=== PATIENT | female | born 1980 | race African-American/Black ===

== ENCOUNTER → 2016-11-30 | Outpatient (CLI) | payer OTHER ==
--- NOTE | 2016-11-30 13:36 | RAD ---
2 views of the Chest 11/30/2016 2:00 AM Indication: ASTHMA, DEPRESSION, DISABILITY DETERMINATION Comparison: None Findings: There is no pneumothorax or pleural effusion. There is a small calcified granuloma in the right middle lobe. There is what appears to be calcified adenopathy in the right peritracheal region in the subcarinal region. An acute infiltrate is not identified. Heart size is normal. No acute osseous changes are seen. Impression: 1.No evidence of acute cardiopulmonary process. 2 small calcified granuloma in the right middle lobe, as well as calcified right paratracheal and subcarinal adenopathy. Findings most likely the sequela of prior granulomatous disease
== END | disposition home or self-care (01) ==
LOC: RAD 12:56
PROVIDERS: ATTEND Neuromusculoskeletal Medicine, Sports Medicine
DX: J45.909 Unspecified asthma, uncomplicated (principal); F32.9 Major depressive disorder, single episode, unspecified; J84.10 Pulmonary fibrosis, unspecified; R59.9 Enlarged lymph nodes, unspecified
CPT/HCPCS: 71020

== ENCOUNTER 2016-12-13 19:36 | Emergency (ER) | payer OTHER ==
[~2016-12-13] VITALS: Ht 165.1 cm; Wt 108.9 kg
--- NOTE | 2016-12-13 20:10 | PHYS DOC ---
Adult General Chief Complaint Chief Complaint: SYNCOPE HPI HPI Patient is a 36 year old and [place] female who presents with sick all episode. She states she was at work and all of a sudden she ended up on the floor. She states this is not the first time this is happen fact the last 6 weeks is happen to other times. She denies any prodromal symptoms prior to her passing out she denies any urinary incontinence. She does complain of a headache in the frontal aspect of her head but denies she hit her head. She denies any nausea chest pain shortness of breath. She does have a history of fibromyalgia and diabetes. She is complaining about feeling foggy. Review of Systems Review of Systems Constitutional: Denies fever or chills [] Eyes: Denies change in visual acuity, redness, or eye pain [] HENT: Denies nasal congestion or sore throat [] Respiratory: Denies cough or shortness of breath [] Cardiovascular: No additional information not addressed in HPI [] GI: Denies abdominal pain, nausea, vomiting, bloody stools or diarrhea [] : Denies dysuria or hematuria [] Musculoskeletal: Denies back pain or joint pain [] Integument: Denies rash or skin lesions [] Neurologic: Positive for headache, Denies focal weakness or sensory changes [] Endocrine: Denies polyuria or polydipsia [] Current Medications Current Medications Current Medications Medications (Trade) Dose Ordered Sig/Natalie Start Time Stop Time Status Last Admin Dose Admin Magnesium Sulfate/ Dextrose 100 ml @ 100 mls/hr 1X ONCE 12/13/16 21:30 12/13/16 22:29 DC 12/13/16 21:24 100 MLS/HR Potassium Chloride (Klor-Con) 40 meq 1X ONCE 12/13/16 21:30 12/13/16 21:31 DC 12/13/16 21:26 40 MEQ Sodium Chloride 1,000 ml @ 1,000 mls/hr 1X ONCE 12/13/16 23:00 12/13/16 23:59 DC 12/13/16 23:00 1,000 MLS/HR Allergies Allergies Allergies Coded Allergies Type Severity Reaction Last Updated Verified No Known Drug Allergies 12/13/16 No Physical Exam Physical Exam Constitutional: Well developed, well nourished, no acute distress, non-toxic appearance. [] HENT: Normocephalic, atraumatic, bilateral external ears normal, oropharynx moist, no oral exudates, nose normal. [] Eyes: PERRLA, EOMI, conjunctiva normal, no discharge. [] Neck: Normal range of motion, no tenderness, supple, no stridor. [] Cardiovascular:Heart rate regular rhythm, no murmur [] Lungs & Thorax: Bilateral breath sounds clear to auscultation [] Abdomen: Bowel sounds normal, soft, no tenderness, no masses, no pulsatile masses. [] Skin: Warm, dry, no erythema, no rash. [] Back: No tenderness, no CVA tenderness. [] Extremities: No tenderness, no cyanosis, no clubbing, ROM intact, no edema. [] Neurologic: Alert and oriented X 3, normal motor function, normal sensory function, no focal deficits noted. [] Psychologic: Affect normal, judgement normal, mood normal. [] Current Patient Data Vital Signs Vital Signs Date Time Temp Pulse Resp B/P (MAP) Pulse Ox O2 Delivery O2 Flow Rate FiO2 12/13/16 23:35 86 20 100/50 (67) 97 Room Air 12/13/16 20:10 98.3 98.3 Lab Values Laboratory Tests Test 12/13/16 19:49 12/13/16 20:17 12/13/16 20:40 12/13/16 23:00 POC Urine HCG, Qualitative Hcg negative (Negative) White Blood Count 26.2 x10^3/uL (4.0-11.0) H Red Blood Count 4.49 x10^6/uL (3.50-5.40) Hemoglobin 11.6 g/dL (12.0-15.5) L Hematocrit 36.0 % (36.0-47.0) Mean Corpuscular Volume 80 fL (79-100) Mean Corpuscular Hemoglobin 26 pg (25-35) Mean Corpuscular Hemoglobin Concent 32 g/dL (31-37) Red Cell Distribution Width 15.1 % (11.5-14.5) H Platelet Count 357 x10^3/uL (140-400) Neutrophils (%) (Auto) 83 % (31-73) H Lymphocytes (%) (Auto) 11 % (24-48) L Monocytes (%) (Auto) 5 % (0-9) Eosinophils (%) (Auto) 1 % (0-3) Basophils (%) (Auto) 1 % (0-3) Neutrophils # (Auto) 21.9 x10^3uL (1.8-7.7) H Lymphocytes # (Auto) 2.8 x10^3/uL (1.0-4.8) Monocytes # (Auto) 1.3 x10^3/uL (0.0-1.1) H Eosinophils # (Auto) 0.1 x10^3/uL (0.0-0.7) Basophils # (Auto) 0.2 x10^3/uL (0.0-0.2) Segmented Neutrophils % 84 % (35-66) H Band Neutrophils % 4 % (0-9) Lymphocytes % 10 % (24-48) L Monocytes % 2 % (0-10) Platelet Estimate Adequate (ADEQUATE) Sodium Level 142 mmol/L (136-145) Potassium Level 2.9 mmol/L (3.5-5.1) *L Chloride Level 105 mmol/L (98-107) Carbon Dioxide Level 24 mmol/L (21-32) Anion Gap 13 (6-14) Blood Urea Nitrogen 6 mg/dL (7-20) L Creatinine 0.7 mg/dL (0.6-1.0) Estimated GFR (Cockcroft-Gault) 113.9 Glucose Level 135 mg/dL (70-99) H Calcium Level 9.3 mg/dL (8.5-10.1) Magnesium Level 1.7 mg/dL (1.8-2.4) L Total Bilirubin 0.4 mg/dL (0.2-1.0) Direct Bilirubin 0.1 mg/dL (0.0-0.2) Aspartate Amino Transferase (AST) 24 U/L (15-37) Alanine Aminotransferase (ALT) 17 U/L (14-59) Alkaline Phosphatase 73 U/L (46-116) Creatine Kinase 123 U/L (26-192) 118 U/L (26-192) Creatine Kinase MB (Mass) < 0.5 ng/mL (0.0-3.6) < 0.5 ng/mL (0.0-3.6) Creatine Kinase MB Relative Index % (0-4) % (0-4) Troponin I Quantitative < 0.017 ng/mL (0.000-0.055) < 0.017 ng/mL (0.000-0.055) TR-Xbb-Y-Type Natriuretic Peptide 125 pg/mL (0-124) H Total Protein 7.6 g/dL (6.4-8.2) Albumin 3.3 g/dL (3.4-5.0) L Thyroid Stimulating Hormone (TSH) 0.522 uIU/mL (0.358-3.74) Urine Color Yellow Urine Clarity Clear Urine pH 6.5 Urine Specific [place] <=1.005 Urine Protein Negative mg/dL (NEG-TRACE) Urine Glucose (UA) Negative mg/dL (NEG) Urine Ketones (Stick) Negative mg/dL (NEG) Urine Blood Negative (NEG) Urine Nitrite Negative (NEG) Urine Bilirubin Negative (NEG) Urine Urobilinogen Dipstick 0.2 mg/dL (0.2 mg/dL) Urine Leukocyte Esterase Negative (NEG) Urine RBC 0 /HPF (0-2) Urine WBC Occ /HPF (0-4) Urine Squamous Epithelial Cells Mod /LPF Urine Amorphous Sediment Present /HPF Urine Bacteria 0 /HPF (0-FEW) Urine Opiates Screen Neg (NEG) Urine Methadone Screen Neg (NEG) Urine Barbiturates Neg (NEG) Urine Phencyclidine Screen Neg (NEG) Urine Amphetamine/Methamphetamine Neg (NEG) Urine Benzodiazepines Screen Neg (NEG) Urine Cocaine Screen Neg (NEG) Urine Cannabinoids Screen Neg (NEG) Urine Ethyl Alcohol Neg (NEG) Laboratory Tests 12/13/16 20:17 Laboratory Tests 12/13/16 20:17 EKG EKG EKG shows sinus rhythm rate [address] elevations or T-wave inversions, and normal axis, QTC 4 and 28 ms, as interpreted by me. Radiology/Procedures Radiology/Procedures [facility] [address] [place] [address] IMAGING REPORT Signed PATIENT: ELIAS OWUSU ACCOUNT: [id number] : 1980 LOCATION: ER AGE: 36 SEX: F EXAM STATUS: REG ER ORD. PHYSICIAN: ROSIE MESSINA MD REASON: syncope PROCEDURE: CT HEAD WO CONTRAST CT head without contrast: Reason for examination: Syncope today. Axial images were obtained through the brain. No contrast was administered. Exposure: One or more of the following individualized dose reduction techniques were utilized for this examination: 1. Automated exposure control 2. Adjustment of the mA and/or kV according to patient size 3. Use of iterative reconstruction technique. Ventricular systems are symmetric and not abnormally dilated. No midline shift is seen. There is no evidence of intracranial hemorrhage, infarct, mass or edema. There is calcification along the cerebral falx. No abnormalities are seen at the orbits. The paranasal sinuses are well-developed and well aerated with no mucosal thickening. Mastoid air cells are clear. No acute abnormality seen in the skull. IMPRESSION: No acute intracranial abnormality evident. Electronically signed by: Miley Pizano MD (12/13/2016 10:10 PM) [id number] DICTATED and SIGNED BY: MILEY PIZANO MD DATE: 12/13/162207 CC: ROSIE MESSINA MD; WARREN FLOOD MD ~ One view chest x-ray did not show any focal consolidations, bony abnormality's, or pneumothorax, as interpreted by me. Impressions: sycnope Hypomagnesemia Hypokalemia Orthostatic Course & Med Decision Making Course & Med Decision Making Pertinent Labs and Imaging studies reviewed. (See chart for details) Patient was orthostatic and hypokalemic upon presentation. She received a liter of fluids. Her potassium and magnesium was replaced. CT head and chest x-ray in addition to EKG nonacute. I do not see any reason why she needs to be admitted. We will have her follow-up with primary care who can then refer her to cardiology. Patient's agreeable plan being discharged in stable condition at this time with return precautions. Dragon Disclaimer Dragon Disclaimer This electronic medical record was generated, in whole or in part, using a voice recognition dictation system. Departure Departure Impression: Primary Impression: Syncope Disposition: 01 HOME, SELF-CARE Condition: STABLE Referrals: WARREN FLOOD MD (PCP) Patient Instructions: Syncope, [id number] Additional Instructions: Your potassium was slightly low in addition to magnesium. These were both replaced. You are also slightly dehydrated and received IV fluids. You will need to follow-up with Dr. Flood. Please call his office and schedule follow- up appointment. They might refer you to a real estate account executive for your repeated episodes of passing out. If you develop chest pain, shortness of breath, or other concerns please return back to emergency department for evaluation and treatment. Problem Qualifiers Primary Impression: Syncope Syncope type: unspecified Qualified Codes: R55 - Syncope and collapse ROSIE MESSINA MD Dec 13, 2016 20:10
[2016-12-13 20:29] LABS: BASO # 0.2 x10^3/uL (0.0-0.2); BASO % 1 % (0-3); EOS % 1 % (0-3); HEMOGLOBIN 11.6 g/dL (12.0-15.5); LYMPH # 2.8 x10^3/uL (1.0-4.8); LYMPH % 11 % (24-48); MEAN CORPUSCULAR HEMOGLOBIN 26 pg (25-35); MEAN CORPUSCULAR HGB CONC 32 g/dL (31-37); MEAN CORPUSCULAR VOLUME 80 fL (79-100); MONO % 5 % (0-9); NEUT % 83 % (31-73); PLATELET COUNT 357 x10^3/uL (140-400); RED BLOOD COUNT 4.49 x10^6/uL (3.50-5.40); RED CELL DISTRIBUTION WIDTH 15.1 % (11.5-14.5); WHITE BLOOD COUNT 26.2 x10^3/uL (4.0-11.0)
[2016-12-13 20:50] LABS: BILIRUBIN,URINE NEGATIVE (NEG); GLUCOSE,URINE NEGATIVE (NEG); NITRITE,URINE NEGATIVE (NEG); PH,URINE 6.5; PROTEIN,URINE NEGATIVE (NEG-TRACE); UROBILINOGEN,URINE 0.2 mg/dL (0.2 mg/dL)
[2016-12-13 20:50] LABS: ALBUMIN 3.3 g/dL (3.4-5.0); CALCIUM 9.3 mg/dL (8.5-10.1); CREATININE 0.7 mg/dL (0.6-1.0); DIRECT BILIRUBIN 0.1 mg/dL (0.0-0.2); GFR 113.9; MAGNESIUM 1.7 mg/dL (1.8-2.4); POTASSIUM 2.9 mmol/L (3.5-5.1); TOTAL BILIRUBIN 0.4 mg/dL (0.2-1.0); TOTAL PROTEIN 7.6 g/dL (6.4-8.2)
[2016-12-13 20:55] LABS: BARBITURATES NEG (NEG); BENZODIAZEPINES NEG (NEG); CANNABINOIDS NEG (NEG); COCAINE NEG (NEG); METHADONE NEG (NEG); OPIATES NEG (NEG); PHENCYCLIDINE NEG (NEG)
[2016-12-13 20:56] LABS: CKMB MASS < 0.5 ng/mL (0.0-3.6); CREATINE KINASE 123 U/L (26-192)
[2016-12-13 21:01] LABS: BACTERIA,URINE 0 /HPF (0-FEW); RBC,URINE 0 /HPF (0-2); SQUAMOUS EPITHELIAL CELL,UR MOD /LPF; WBC,URINE OCC /HPF (0-4)
[2016-12-13 21:22] LABS: PLT ESTIMATE ADEQUATE (ADEQUATE)
[2016-12-13] MEDS ORDERED: MAGNESIUM SULFATE 1GM 100 ML IV ONE (21:30)
[2016-12-13] MEDS ORDERED: POTASSIUM CHLORIDE 20 MEQ TABLET.ER. PO ONE (21:30)
--- NOTE | 2016-12-13 22:13 | RAD ---
CT head without contrast: Reason for examination: Syncope today. Axial images were obtained through the brain. No contrast was administered. Exposure: One or more of the following individualized dose reduction techniques were utilized for this examination: 1. Automated exposure control 2. Adjustment of the mA and/or kV according to patient size 3. Use of iterative reconstruction technique. Ventricular systems are symmetric and not abnormally dilated. No midline shift is seen. There is no evidence of intracranial hemorrhage, infarct, mass or edema. There is calcification along the cerebral falx. No abnormalities are seen at the orbits. The paranasal sinuses are well-developed and well aerated with no mucosal thickening. Mastoid air cells are clear. No acute abnormality seen in the skull. IMPRESSION: No acute intracranial abnormality evident. Electronically signed by: Miley Bowman MD (12/13/2016 10:10 PM) [facility]
[2016-12-13] MEDS ORDERED: IV NORMAL SALINE 1000ML BAG 1,000 ML IV ONE (23:00)
[2016-12-13 23:35] VITALS: BP 100/50
[2016-12-13 23:36] LABS: CKMB MASS < 0.5 ng/mL (0.0-3.6); CREATINE KINASE 118 U/L (26-192)
--- NOTE | 2016-12-14 07:49 | EKG ---
[facility] [address] [place] [address] Test Date: 2016-12-13 Test Time: 20:09:42 Pat Name: ELIAS OWUSU Department: Room: Gender: F Senior Account Manager: : 1980 Requested By: ROSIE MESSINA Order Number: [id number] Reading MD: Alana Penn Measurements Intervals Pitcher Rate: 93 P: 61 [place]: 164 QRS: 23 QRSD: 90 T: 35 QT: 342 QTc: 428 Interpretive Statements SINUS RHYTHM LEFT ATRIAL ABNORMALITY ABNORMAL ECG Electronically Signed On 12-18-2016 9:02:30 CDT by Alana Penn
--- NOTE | 2016-12-14 08:16 | RAD ---
Indication syncopal episode. A single view of the chest was obtained. Comparison is made to an examination 11/30/2016. There is suggested volume loss in the left lower lobe, new relative to the previous exam. This may reflect atelectasis although pneumonia is not excluded. The right lung is clear. A granuloma is noted in the right lung similar to the previous exam. IMPRESSION: Suggested volume loss in the left mid and lower lung field new relative to the previous exam. Findings may reflect atelectasis or pneumonia
== END 2016-12-14 00:28 | disposition home or self-care (01) ==
LOC: ER 19:36
DX: R55 Syncope and collapse (principal); E11.9 Type 2 diabetes mellitus without complications; E87.6 Hypokalemia; E83.42 Hypomagnesemia; M79.7 Fibromyalgia
CPT/HCPCS: 36415; 70450; 71010; 80048; 80076; 80307; 81001; 81025; 82553; 83735; 83880; 84443; 84484; 85007; 85025; 93005; 96365; 99285; J3475; J7030; G0479

== ENCOUNTER → 2017-01-18 | Outpatient (CLI) | payer OTHER ==
--- NOTE | 2017-01-18 10:21 | CARD ---
APPROVED REPORT EXAM: Two-dimensional and M-mode echocardiogram with Doppler and color Doppler. Other Information Quality : Good INDICATION Syncope 2D DIMENSIONS RVDd2.7 (2.9-3.5cm)Left Atrium(2D)3.3 (1.6-4.0cm) IVSd1.1 (0.7-1.1cm)Aortic Root(2D)2.7 (2.0-3.7cm) LVDd4.6 (3.9-5.9cm)LVOT Diameter2.1 (1.8-2.4cm) PWd1.1 (0.7-1.1cm)LVDs3.0 (2.5-4.0cm) FS (%) 34.2 %SV60.8 ml LVEF(%)60.0 (>50%) Aortic Valve AoV Peak Angelo.174.2cm/sAoV VTI30.2cm AO Peak GR.12.1mmHgLVOT Peak Angelo.142.6cm/s AO Mean GR.7mmHgAVA (VMAX)2.95cm2 WILLIAM (VTI)3.30cm2 Mitral Valve MV E Pqbskpow515.5cm/sMV DECEL CXMP119on MV A Zfhuhmdl97.6cm/sE/A Ratio1.3 Pulmonary Vein S1 Vzysbeqt71.2cm/sD2 Qmrvdfht97.3cm/s LEFT VENTRICLE The left ventricle is normal size. There is normal left ventricular wall thickness. The left ventricu lar systolic function is normal. The Ejection Fraction is 55-60%. There is normal LV segmental wall m otion. Transmitral Doppler flow pattern is normal for age. RIGHT VENTRICLE The right ventricle is normal size. The right ventricular systolic function is normal. ATRIA The left atrium size is normal. The right atrium size is normal. The interatrial septum is intact wit h no evidence for an atrial septal defect or patent foramen ovale as noted on 2-D or Doppler imaging. AORTIC VALVE The aortic valve is normal in structure and function. Doppler and Color Flow revealed no significant aortic regurgitation. There is no significant aortic valvular stenosis. MITRAL VALVE The mitral valve is normal in structure and function. There is no evidence of mitral valve prolapse. There is no mitral valve stenosis. Doppler and Color Flow revealed no mitral valve regurgitation note d. TRICUSPID VALVE The tricuspid valve is normal in structure and function. Doppler and Color Flow revealed no tricuspid valve regurgitation noted. There is no tricuspid valve stenosis. PULMONIC VALVE The pulmonary valve is normal in structure and function. Doppler and Color Flow revealed trace pulmon ic valvular regurgitation. There is no pulmonic valvular stenosis. GREAT VESSELS The aortic root is normal in size. The ascending aorta is normal in size. The IVC is normal in size a nd collapses >50% with inspiration. PERICARDIAL EFFUSION There is no evidence of significant pericardial effusion. Critical Notification Critical Value: No <Conclusion> The left ventricular systolic function is normal. The Ejection Fraction is 55-60%. There is normal LV segmental wall motion. There is no evidence of significant pericardial effusion.
== END | disposition home or self-care (01) ==
LOC: ECHO 09:31
PROVIDERS: ATTEND Internal Medicine Cardiovascular Disease
DX: I31.3 Pericardial effusion (noninflammatory) (principal); R55 Syncope and collapse
CPT/HCPCS: 93306